=== PATIENT | male | born 1960 | race Caucasian/White ===

== ENCOUNTER 2021-01-18 20:52 | Emergency (ER) | payer BC ==
[2021-01-18 21:17] VITALS: BP 165/84; PULSE 94
[2021-01-18] MEDS ORDERED: HYDROmorphone 1 MG/ML Syringe IM ONE (21:52)
[2021-01-18] MEDS ORDERED: Ketorolac 60 MG/2 ML SDV IM ONE (21:52)
--- NOTE | 2021-01-18 21:54 | EDM.PDOC ---
ED HPI GENERAL MEDICAL PROBLEM - General Chief Complaint: Lower Extremity Injury/Pain Stated Complaint: RIGHT KNEE PAIN AFTER SURGERY Time Seen by Provider: 01/18/21 21:40 Source of Information: Reports: Patient, Family History Limitations: Reports: No Limitations - History of Present Illness INITIAL COMMENTS - FREE TEXT/NARRATIVE: 60-year-old male who had total knee surgery on the right side yesterday, released from the hospital this morning came in tonight because of intense right knee pain and is intolerant of the oxycodone. No significant redness no fever. He does have diffuse swelling around the knee. No new injury such as falling. Onset: Gradual Location: Reports: Lower Extremity, Right Associated Symptoms: Reports: Malaise. Denies: Fever/Chills Right Knee Pain Score (Numeric/FACES): 10 - Related Data Allergies Allergy/AdvReac Type Severity Reaction Status Date / Time Penicillins Allergy Intermediate Rash Verified 10/05/13 05:24 Home Meds: Home Meds buPROPion [Wellbutrin XL] 300 mg PO DAILY 10/05/13 [History] traZODone 100 mg PO BEDTIME 10/05/13 [History] Albuterol [Proair HFA] 2 puff INH ASDIRECTED PRN 08/01/15 [History] Ascorbic Acid [Vitamin C] 1,000 mg PO DAILY 08/01/15 [History] Multivitamin [Daily Molly] 1 tab PO DAILY 08/01/15 [History] Aspirin 325 mg PO DAILY 01/18/21 [History] ClonazePAM [KlonoPIN] 1 mg PO BEDTIME PRN 01/18/21 [History] Mirtazapine [Remeron] 15 mg PO BEDTIME 01/18/21 [History] Sennosides [Senna] 8.6 mg PO BID 01/18/21 [History] oxyCODONE 1 - 2 mg PO Q4HR 01/18/21 [History] traMADol [Ultram] 50 mg PO Q6H PRN 01/18/21 [History] Past Medical History HEENT History: Reports: Impaired Vision - Infectious Disease History Infectious Disease History: Reports: Chicken Pox - Past Surgical History Musculoskeletal Surgical History: Reports: Other (See Below) Other Musculoskeletal Surgeries/Procedures:: back surgery and miniscus tear Social & Family History - Tobacco Use Tobacco Use Status *Q: Current Every Day Tobacco User Years of Tobacco use: 50 Packs/Tins Daily: 1 - Caffeine Use Caffeine Use: Reports: Soda - Recreational Drug Use Recreational Drug Use: No Review of Systems - Review of Systems Review Of Systems: See Below Constitutional: Denies: Fever Respiratory: Reports: No Symptoms Cardiovascular: Reports: No Symptoms GI/Abdominal: Reports: Nausea Musculoskeletal: Reports: Other (Right knee pain) ED EXAM, GENERAL - Physical Exam Exam: See Below Exam Limited By: No Limitations General Appearance: Alert, Mild Distress (Patient is very uncomfortable) Head: Atraumatic Respiratory/Chest: No Respiratory Distress, Lungs Clear Cardiovascular: Regular Rate, Rhythm Extremities: Other (Exam of the lower extremity on the right shows a swollen knee and proximal thigh, with a longitudinal dressing over the anterior knee. There is diffuse tenderness to any palpation or movement of the knee. No redness or warmth) Neurological: Alert, Oriented Psychiatric: Anxious Skin Exam: Warm, Dry Course - Vital Signs Last Recorded V/S: Last Vital Signs Temp 99.4 F 01/18/21 21:46 Pulse 94 01/18/21 21:46 Resp 16 01/18/21 21:46 BP 165/84 H 01/18/21 21:46 Pulse Ox 94 L 01/18/21 21:46 - Orders/Labs/Meds Meds: Medications Discontinued Medications Generic Name Dose Route Start Last Admin Trade Name Elaine PRN Reason Stop Dose Admin Hydromorphone HCl 1 mg 01/18/21 21:52 01/18/21 21:58 Hydromorphone 1 Mg/Ml Syringe IM 01/18/21 21:53 1 mg ONETIME ONE Administration Ketorolac Tromethamine 60 mg 01/18/21 21:52 01/18/21 21:57 Ketorolac 60 Mg/2 Ml Sdv IM 01/18/21 21:53 60 mg ONETIME ONE Administration Ondansetron HCl 4 mg 01/18/21 22:00 01/18/21 22:04 Ondansetron 4 Mg Tab.Dis PO 01/18/21 22:01 4 mg ONETIME ONE Administration - Re-Assessments/Exams Free Text/Narrative Re-Assessment/Exam: 01/18/21 22:49 Patient was given 60 mg of IM Toradol along with 1 mg of IM Dilaudid. Within 20 minutes he had excellent relief, he will be discharged home, elevate the leg if able and recheck tomorrow with orthopedics if not improving satisfactorily. Departure - Departure Time of Disposition: 22:39 Disposition: Home, Self-Care 01 Clinical Impression: Postoperative pain of right knee - Discharge Information Instructions: Acute Knee Pain, Adult Referrals: Jovon Ledesma MD [Primary Care Provider] - Forms: ED Department Discharge Care Plan Goals: Elevate leg if possible, continue your pain medications as prescribed and call your surgeon tomorrow if not improving satisfactorily. Use Zofran for nausea every 4-6 hours if needed. Sepsis Event Note (ED) - Evaluation Sepsis Screening Result: No Definite Risk - Focused Exam Vital Signs: Vital Signs Temp Pulse Resp BP Pulse Ox 01/18/21 21:46 99.4 F 94 16 165/84 H 94 L 01/18/21 21:16 99.4 F 94 16 165/84 H 94 L
[2021-01-18] MEDS ORDERED: Ondansetron 4 MG Tab.DIS PO ONE (22:00)
== END 2021-01-18 22:39 | disposition home or self-care (01) ==
LOC: JP.ED 20:52
DX: G89.18 Other acute postprocedural pain (principal); M25.561 Pain in right knee; Z72.0 Tobacco use; Z88.0 Allergy status to penicillin; Z98.890 Other specified postprocedural states
CPT/HCPCS: 96372; 99283; A9270; J1170; J1885